=== PATIENT | female | born 1990 | race Caucasian/White ===

== ENCOUNTER 2020-07-10 14:10 | Observation (INO) | payer BC ==
[2020-07-10 14:33] VITALS: PULSE 88
[2020-07-10 14:50] VITALS: BP 121/73
== END 2020-07-10 15:13 | disposition home or self-care (01) ==
LOC: OB 14:10
PROVIDERS: ADMIT Family Medicine; ATTEND Family Medicine
DX: Z34.83 Encounter for supervision of other normal pregnancy, third trimester (principal); Z3A.35 35 weeks gestation of pregnancy
CPT/HCPCS: 59025; G0378

== ENCOUNTER 2020-08-08 05:07 | Inpatient (IN) | payer BC ==
[~2020-08-08 05:07] MED LIST: CEFAZOLIN 2 GM-D5W BAG** 2 GM/50 ML ML IV SCH; Lactated Ringers 1,000 ML IV ONE; Lactated Ringers 1,000 ML IV SCH; Pepcid 20 MG VIAL IV SCH; Reglan 10 MG/2 ML IV SCH; SOD CITRATE-CITRIC ACID SOLN PO ONE
[2020-08-08 05:50] LABS: Hematocrit 39.1 % (35-47); Hemoglobin 12.9 gm/dl (12.0-16.0); Mean Cell Volume 90.9 fl (78-100); Mean Platelet Volume 9.9 fl (7.5-11.0); Platelet Count 188 K/mm3 (150-450); Red Cell Distribution Width 14.2 % (11.5-14.0); White Blood Count 6.1 K/mm3 (4.0-10.5)
[2020-08-08 05:57] LABS: Appearance SLIGHTLY CLOUDY (CLEAR); Bilirubin NEGATIVE (NEGATIVE); Blood NEGATIVE Ery/ul (0-5); Epithelial Cells RARE /HPF (FEW); Glucose NEGATIVE (NEGATIVE); Ketones NEGATIVE (NEGATIVE); Leukocyte Esterase NEGATIVE (NEGATIVE); Mucus SLIGHT /HPF (NEGATIVE); Nitrite NEGATIVE (NEGATIVE); Protein,Urine Dip NEGATIVE (Negative); Specific Gravity 1.016 (1.005-1.025); Urobilinogen NEGATIVE mg/dL (0-1)
[2020-08-08 06:07] LABS: Amphetamine,Urine NEGATIVE (NEGATIVE); Barbiturate,Urine NEGATIVE (NEGATIVE); Benzodiazepine,Urine NEGATIVE (NEGATIVE); Cocaine,Urine NEGATIVE (NEGATIVE); Methadone,Urine NEGATIVE (NEGATIVE); Opiate,Urine NEGATIVE (NEGATIVE); PCP,Urine NEGATIVE (NEGATIVE); THC,Urine NEGATIVE (NEGATIVE)
[2020-08-08 06:10] LABS: INR 0.97 (0.8-3.0)
[2020-08-08 06:12] LABS: PTT 26.9 SECONDS (25.3-37.0)
[2020-08-08 06:38] LABS: ABO TYPING O; Antibody Screen NEGATIVE (NEGATIVE); RH TYPING POSITIVE
[2020-08-08] MEDS ORDERED: Pitocin 10 UNITS/ML ONE ×2 (06:45→08:32)
[2020-08-08] MEDS ORDERED: Astramorph-Pf 5 MG/10 ML ONE (06:45)
[2020-08-08] MEDS ORDERED: Sodium Chloride 0.9% 10 ML FLUSH Syringe IJ PRN (07:22)
[2020-08-08] MEDS ORDERED: PERCOCET TABLET 5/325MG PO PRN (07:22)
[2020-08-08] MEDS ORDERED: HOLD NARCOTIC ANALGESICS AND SEDATIVES X24 HR MC PRN (07:22)
[2020-08-08] MEDS ORDERED: DEMEROL 50 MG IV PRN (07:22)
[2020-08-08] MEDS ORDERED: Zofran 4 MG/2 ML VIAL IV PRN (07:22)
[2020-08-08] MEDS ORDERED: BENADRYL 50 MG/ML IV PRN (07:22)
[2020-08-08] MEDS ORDERED: MORPHINE SULFATE 2 MG INJ IV PRN (07:22)
[2020-08-08] MEDS ORDERED: Narcan 0.4 MG/ML IV PRN (07:22)
[2020-08-08] MEDS ORDERED: Nubain 10 MG/ML IV PRN (07:22)
[2020-08-08] MEDS ORDERED: CLARITIN 10 MG PO PRN (07:22)
[2020-08-08] MEDS ORDERED: Lactated Ringers 1,000 ML IV ONE (08:30)
[2020-08-08] MEDS ORDERED: MARCAINE 0.5%-EPI 1:200,000 VL IJ ONE (08:39)
[2020-08-08] MEDS ORDERED: Marcaine 0.5%/Epinephrine 10 ML ONE (08:39)
[2020-08-08] MEDS ORDERED: DEMEROL 50 MG ONE (09:21)
[2020-08-08 09:36] LABS: Appearance CLEAR (CLEAR); Bilirubin NEGATIVE (NEGATIVE); Blood NEGATIVE Ery/ul (0-5); Glucose NEGATIVE (NEGATIVE); Ketones NEGATIVE (NEGATIVE); Leukocyte Esterase NEGATIVE (NEGATIVE); Mucus SLIGHT /HPF (NEGATIVE); Nitrite NEGATIVE (NEGATIVE); Protein,Urine Dip NEGATIVE (Negative); Specific Gravity 1.016 (1.005-1.025); Urobilinogen NEGATIVE mg/dL (0-1)
[2020-08-08 09:37] LABS: Bacteria RARE /HPF (NEGATIVE)
[2020-08-08] MEDS ORDERED: TUCKS TP PRN (10:00)
[2020-08-08] MEDS ORDERED: Mylicon 80MG PO PRN (10:00)
[2020-08-08] MEDS ORDERED: FERREX 150 PO SCH (10:00)
[2020-08-08] MEDS ORDERED: CORTISONE 1% CREAM TP PRN (10:00)
[2020-08-08] MEDS ORDERED: Anucort-HC SUPPOSITORY PR PRN (10:00)
[2020-08-08] MEDS ORDERED: Dermoplast Spray TP PRN (10:00)
[2020-08-08] MEDS ORDERED: LANSINOH 40 GM TOP PRN (10:00)
[2020-08-08] MEDS ORDERED: Dulcolax 10 MG SUPP PR PRN (10:00)
[2020-08-08] MEDS: Colace 100 MG PO SCH ×2 (10:13→21:05)
[2020-08-08] MEDS: Dextrose 5%-Lr IV Solution 1000 ML 1,000 ML IV SCH ×2 (10:15→18:12)
--- NOTE | 2020-08-08 10:40 | OP ---
SURGERY DATE/TIME: 08/08/2020 0801 PREOPERATIVE DIAGNOSES: 1) Term intrauterine . 2) History of prior section. POSTOPERATIVE DIAGNOSES: 1) Term intrauterine . 2) History of prior section. PROCEDURE: Repeat low transverse section. SURGEON: Mingo Packer M.D. ESTIMATED BLOOD LOSS: 400 ml. URINE OUTPUT: 200 ml of clear straw-colored urine. ANESTHESIA: Spinal by Luis Laguna CRNA. SPECIMENS: None. DESCRIPTION OF PROCEDURE: After informed written consent was obtained, the patient was taken to the operating room. She had spinal anesthesia performed and then was prepped and draped in the usual sterile fashion after a Perla catheter was inserted. A low transverse skin incision was made by knife and carried down to the level of subcutaneous fat to the level of midline and fascia extended after it was nicked on both sides of the midline. It was extended in horizontal fashion using curved Martins scissors. The superior free edge of the fascia was grasped with Og clamps and the underlying rectus muscles were dissected free. The same was repeated inferiorly. The peritoneal cavity was opened bluntly and extended horizontal. Uterine incision was made by knife after a bladder flap was created and reflected over the lower uterine segment. The uterine incision was made by knife and carried down to the level of the amniotic membranes which were carefully artificially ruptured. A viable male infant was delivered from the vertex presentation with strong cry immediately present. Bulb suctioned the oropharynx and nares and then the cord was clamped and cut and he was handed off to the awaiting nursery team. The placenta was manually extracted and the uterus was exteriorized. The uterine cavity was curetted clean with lap sponge. The uterine incision was closed with #1 chromic in a running locked fashion with good closure and good hemostasis were achieved. There was an area of bleeding in the left lateral aspect of the incision which 2-0 [address] was used to place [id number] suture which terminated the bleeding. The posterior cul-de-sac was wiped free of blood and clot and the uterus was returned to the peritoneal cavity. Lateral gutters were wiped free of blood and clot. The uterine incision was grossly inspected and noted to be hemostatic. Next, the fascia was closed with 0 Vicryl in a running fashion with good closure and good hemostasis were achieved. The subcutaneous fat was irrigated with warm, sterile saline and any areas of bleeding were cauterized with electrocautery. Finally, the skin layer was closed with 4-0 undyed Vicryl in a running subcuticular fashion. Steri-Strips and occlusive dressing were placed over the incision. The patient was transferred to the recovery in good condition.
[2020-08-08] MEDS: MOTRIN 400 MG PO PRN ×2 (12:04→18:12)
[2020-08-08] MEDS ORDERED: Compazine 10 MG/2 ML IV ONE (12:42)
[2020-08-08] MEDS: TYLENOL EXTRA STRENGTH 500 MG PO PRN ×2 (15:26→21:05)
[2020-08-08] MEDS: THERAGRAN MULTIVITAMIN PO SCH (15:27)
[2020-08-09] MEDS: MOTRIN 400 MG PO PRN ×3 (00:07→20:36)
[2020-08-09] MEDS: TYLENOL EXTRA STRENGTH 500 MG PO PRN ×4 (03:33→23:34)
[2020-08-09 05:42] LABS: Absolute Neutrophil Ct (ANC) 5.89 (1.4-6.9); BASOPHIL % 0.1 % (0.0-0.4); Basophil (Absolute #) 0.01 (0-0.4); Eosinophil % 0.7 % (0.00-5.0); Eosinophil (Absolute #) 0.05 (0-0.5); Hematocrit 31.2 % (35-47); Hemoglobin 10.1 gm/dl (12.0-16.0); Lymphocyte (Absolute #) 1.08 (1.0-4.6); Lymphocytes % 14.2 % (24.0-44.0); Mean Cell Volume 92.9 fl (78-100); Mean Corpuscular Hemoglobin 30.1 pg (26-32); Mean Corpuscular Hgb Concent. 32.4 g/dl (32-36); Mean Platelet Volume 9.6 fl (7.5-11.0); Monocyte (Absolute #) 0.59 (0.0-1.3); Monocytes % 7.7 % (0.0-12.0); Neutrophil % 77.3 % (36.0-66.0); Platelet Count 161 K/mm3 (150-450); Red Blood Count 3.36 M/mm3 (4.1-5.4); Red Cell Distribution Width 14.2 % (11.5-14.0); White Blood Count 7.6 K/mm3 (4.0-10.5)
[2020-08-09] MEDS ORDERED: NORCO 5/325 MG PO PRN (10:00)
[2020-08-09] MEDS ORDERED: [UNRECOGNIZED DRUG - REMARK] PO SCH (10:00)
[2020-08-09] MEDS: Colace 100 MG PO SCH ×2 (10:51→20:36)
[2020-08-09] MEDS: FEOSOL 325 MG PO SCH (10:51)
[2020-08-09] MEDS: THERAGRAN MULTIVITAMIN PO SCH (10:51)
[2020-08-10] MEDS: MOTRIN 400 MG PO PRN ×2 (02:37→08:29)
[2020-08-10] MEDS: TYLENOL EXTRA STRENGTH 500 MG PO PRN ×2 (05:43→12:05)
[2020-08-10 06:09] VITALS: O2SAT 98
[2020-08-10] MEDS: THERAGRAN MULTIVITAMIN PO SCH (12:05)
[2020-08-10] MEDS: FEOSOL 325 MG PO SCH (12:05)
[2020-08-10] MEDS: Colace 100 MG PO SCH (12:05)
[2020-08-10 15:39] VITALS: BP 117/67; PULSE 90
== END 2020-08-10 14:55 | disposition home or self-care (01) | DRG 788 ==
LOC: OB 05:07 → PREOBSVTOIN 20:46
PROVIDERS: ADMIT Family Medicine; ATTEND Family Medicine
PROC: 10D00Z1 Extraction of Products of Conception, Low, Open Approach (ICD-10-PCS; principal; 2020-08-08)
DX: O34.211 Maternal care for low transverse scar from previous cesarean delivery (principal); Z3A.39 39 weeks gestation of pregnancy; Z37.0 Single live birth
CPT/HCPCS: 36415; 62322; 64488; 76937; 76942; 80307; 81001; 85025; 85027; 85610; 85730; 86850; 86900; 86901; 87086; 87340; 94799; J0690; J2175; J2274; J2405; J2590; A9270-GY